=== PATIENT | female | born 1965 | race Caucasian/White ===

== ENCOUNTER → 2016-12-22 | Outpatient (CLI) | payer BC ==
[~2016-12-22] MED LIST: ASPIRIN CHEWABL81 MG PO; IMDUR ER TAB 3030 MG PO; LIPITOR TAB 2020 MG PO; NITROSTAT0.4 MG SL; PRAVACHOL40 MG PO; RANEXA500 MG PO; THERAGRAN TAB1 EA PO; ZESTRIL20 MG PO; ZOCOR40 MG PO
[2016-12-22 09:21] LABS: BUN/CREATININE RATIO 14 (0-10)
== END ==
LOC: LAB 07:45
PROVIDERS: Internal Medicine Cardiovascular Disease
DX: I25.10 Atherosclerotic heart disease of native coronary artery without angina pectoris (principal)
CPT/HCPCS: 36415; 80053; 80061

== ENCOUNTER → 2020-10-06 | Outpatient (CLI) | payer OTHER ==
[~2020-10-06] MED LIST changes: +AMLODIPINE BESYL5 MG PO; +ASPIR 8181 MG PO; +ISOSORBIDE MONO60 MG PO; +LISINOPRIL20 MG PO; +MULTI VIT PO; +PRAVASTATIN SOD40 MG PO
[2020-10-06 07:56] LABS: HEMOGLOBIN 13.9 gm/dl (12.3-15.3); RED BLOOD COUNT 4.23 M/UL (4.00-5.10); WHITE BLOOD COUNT 4.5 K/UL (4.5-11.0)
[2020-10-06 08:21] LABS: BUN/CREATININE RATIO 14 (0-10)
== END ==
LOC: LAB 07:42
PROVIDERS: Internal Medicine Cardiovascular Disease
DX: I25.10 Atherosclerotic heart disease of native coronary artery without angina pectoris (principal)
CPT/HCPCS: 36415; 80053; 80061; 85025

== ENCOUNTER → 2021-04-01 | Outpatient (CLI) | payer OTHER ==
[2021-04-01 09:13] LABS: HEMOGLOBIN 14.3 gm/dl (12.3-15.3); RED BLOOD COUNT 4.33 M/UL (4.00-5.10); WHITE BLOOD COUNT 4.9 K/UL (4.5-11.0)
[2021-04-01 09:37] LABS: BUN/CREATININE RATIO 10 (0-10)
== END ==
LOC: LAB 08:23
PROVIDERS: Internal Medicine Cardiovascular Disease
DX: I25.10 Atherosclerotic heart disease of native coronary artery without angina pectoris (principal); I10 Essential (primary) hypertension
CPT/HCPCS: 36415; 80053; 80061; 83735; 84439; 84443; 85025

== ENCOUNTER → 2021-06-30 | Outpatient (CLI) | payer OTHER | LOC: MAMO 07:49 | DX: Z12.31 Encounter for screening mammogram for malignant neoplasm of breast (principal) | CPT/HCPCS: 77063; 77067 ==

== ENCOUNTER → 2021-07-05 | Outpatient (CLI) | payer OTHER | LOC: CT 10:19 | DX: K45.8 Other specified abdominal hernia without obstruction or gangrene (principal); K80.80 Other cholelithiasis without obstruction | CPT/HCPCS: Q9967 ==

== ENCOUNTER → 2021-10-12 | Outpatient (CLI) | payer BC ==
[2021-10-12 08:35] LABS: BUN/CREATININE RATIO 14 (0-10)
== END ==
LOC: LAB 07:34
PROVIDERS: Internal Medicine Cardiovascular Disease
DX: I10 Essential (primary) hypertension (principal)
CPT/HCPCS: 36415; 80053; 80061; 83735

== ENCOUNTER → 2022-04-14 | Outpatient (CLI) | payer BC ==
[2022-04-14 07:51] LABS: HEMOGLOBIN 13.3 gm/dl (12.3-15.3); RED BLOOD COUNT 4.26 M/UL (4.00-5.10); WHITE BLOOD COUNT 4.1 K/UL (4.5-11.0)
[2022-04-14 08:10] LABS: BUN/CREATININE RATIO 20 (0-10)
== END ==
LOC: LAB 07:16
PROVIDERS: Internal Medicine Cardiovascular Disease
DX: I10 Essential (primary) hypertension (principal)
CPT/HCPCS: 36415; 80053; 80061; 85025